=== PATIENT | male | born 1935 | race Hispanic/Latino ===

== ENCOUNTER → 2019-03-27 | Outpatient (CLI) | payer MEDICARE, OTHER ==
[~2019-03-27] MED LIST: IOHEXOL-350 50ML VIAL IV ONE
== END | disposition home or self-care (01) ==
LOC: RAH 08:16
PROVIDERS: ATTEND Internal Medicine Cardiovascular Disease
DX: I72.3 Aneurysm of iliac artery (principal); I70.1 Atherosclerosis of renal artery; I70.0 Atherosclerosis of aorta; I77.4 Celiac artery compression syndrome; I73.9 Peripheral vascular disease, unspecified; I10 Essential (primary) hypertension
CPT/HCPCS: 75635; Q9967

== ENCOUNTER 2019-05-23 05:45 | Day surgery (SDC) | payer MEDICARE, OTHER ==
[2019-05-21 13:59] LABS: BASOPHILS % (AUTO) 0.1 % (0.0-5.0); EOSINOPHILS % (AUTO) 1.3 % (0.0-8.0); HEMATOCRIT 43.9 % (42-54); LYMPHOCYTES % (AUTO) 20.4 % (21.0-51.0); MEAN CORPUSCULAR HEMOGLOBIN 30.1 pg (27.0-33.0); MEAN CORPUSCULAR VOLUME 91.3 fL (79-99); NEUTROPHILS % (AUTO) 68.4 % (40.0-77.0); PLATELET COUNT (AUTO) 251 K/uL (130-400); RED BLOOD CELL COUNT(AUTO) 4.81 MIL/uL (4.50-6.20); RED CELL DISTRIBUTION WIDTH 12.9 % (11.0-15.5); WHITE BLOOD COUNT (AUTO) 7.9 K/uL (4.8-10.8)
[2019-05-21 14:03] LABS: APPEARANCE,URINE Clear (CLEAR); BILIRUBIN,URINE Negative (NEGATIVE); COLOR,URINE Yellow (YELLOW); GLUCOSE, URINE (UA) >=1000 mg/dL (NEGATIVE); KETONES,URINE Negative (NEGATIVE); LEUKOCYTE ESTERASE ,URINE Negative (NEGATIVE); NITRATE,URINE Negative (NEGATIVE); OCCULT BLOOD,URINE Negative (NEGATIVE); PH,URINE 5.5 (5.0-8.0); PROTEIN,URINE Negative (NEGATIVE)
[2019-05-21 14:04] VITALS: BP 142/68
[2019-05-21 14:09] LABS: POTASSIUM 4.5 mmol/L (3.5-5.1)
[2019-05-21 14:14] LABS: INR 1.03 (0.85-1.15); PARTIAL THROMBOPLASTIN TIME 26.7 SEC (26.3-35.5); PROTHROMBIN TIME 10.8 SEC (9.6-11.6)
[2019-05-21 14:37] LABS: BACTERIA,URINE Rare /HPF (None Seen); RBC,URINE 0-1 /HPF (0-1); SQUAMOUS EPITHELIAL CELL,UR Rare /HPF (0-2); WBC,URINE 0-1 /HPF (0-1)
[~2019-05-23] VITALS: Ht 167.6 cm; Wt 68.7 kg
[2019-05-23] VITALS (9 sets, daily range): BP systolic 134–155; BP diastolic 56–68
[~2019-05-23 05:45] MED LIST changes: +CITA-106 PO; +GLIP1TAB6 PO; -IOHEXOL-350 50ML VIAL IV ONE; +LISI-617 PO; +PRAM0.375 PO; +SODIUM CHLORIDE 0.9% 500ML 500 ML IV SCH
[2019-05-23] MEDS ORDERED: SODIUM CHLORIDE 0.9% 1000ML 1,000 ML IV ONE (06:00)
--- NOTE | 2019-05-23 06:32 | NUR ---
SKIN ABRASION NOTED TO RIGHT LOWER LEG, NO OPEN AREA. PT STATES HAD A FALL AT HOME YESTERDAY. LEFT ELBOW WITH BANDAID. NO OPEN AREA. SLIGHT RED TO AREA Addendum: 05/23/19 at 0633 by ROMAINE OATES RN Amended: Links added.
[2019-05-23] MEDS ORDERED: CITA20TA17 PO (06:35)
[2019-05-23] MEDS ORDERED: LISI-613 PO (06:35)
[2019-05-23] MEDS ORDERED: GLIP1TAB5 PO (06:35)
[2019-05-23] MEDS ORDERED: PRAM1.5T25 PO (06:35)
[2019-05-23] MEDS ORDERED: SODIUM BICARB 50MEQ 50ML VIAL ONE (07:16)
[2019-05-23] MEDS ORDERED: HEPARIN SODIUM 1000UNIT/ML 10ML VIAL ONE (07:16)
[2019-05-23] MEDS ORDERED: MIDAZOLAM HCL 1 MG/ML 2ML VIAL ONE (07:17)
[2019-05-23] MEDS ORDERED: NITROGLYCERIN 1 MG/VIAL VIAL IV ONE (07:17)
[2019-05-23] MEDS ORDERED: MEPERIDINE-PF 25 MG/ML SYG ONE (07:17)
[2019-05-23] MEDS ORDERED: IODIXANOL 320 MG/ML 100 ML VIAL ONE (07:17)
[2019-05-23] MEDS ORDERED: LIDOCAINE HCL 2% 20ML ONE (07:18)
--- NOTE | 2019-05-23 07:20 | NUR ---
procedure pt taken to [facility] for scheduled procedure. pt awake and alert, no distress note.d spouse at bedside.
[2019-05-23] MEDS ORDERED: HYDRALAZINE HCL 20 MG/ML VIAL ONE (08:31)
[2019-05-23] MEDS ORDERED: CLOPIDOGREL BISULFATE 300 MG TAB ONE (08:48)
[2019-05-23] MEDS ORDERED: ASPIRIN 81MG TAB.CHEW ONE (08:48)
[2019-05-23] MEDS ORDERED: SODIUM CHLORIDE 0.9% 1000ML 1,000 ML IV SCH (09:04)
[2019-05-23] MEDS ORDERED: DEXTROSE 50%-WATER 50 ML DISP.SYRIN IV PRN (09:15)
[2019-05-23] MEDS ORDERED: GLUCAGON 1MG KIT 1 MG ML IM PRN (09:15)
--- NOTE | 2019-05-23 09:22 | NUR ---
POST RECEIVED PT FROM [facility] [facility]PART[facility]. S/P ABD AORTOGRAM .STENT X 2 TO LEFT LOWER LEG RIGHT GROIN WITH PERCLOSE CLOSURE DEVICE. DRESSING TO SITE DRY AND INTACT, SEE POST CATH ASSESSMENT. VS STABLE. PT INSTRUCTED TO KEEP RIGHT LEG STRAIGHT . TO KEEP BEDREST FOR 4 HRS. SPOUSE AT BEDSIDE. CALL LIGHT WITHIN REACH.
[2019-05-23] MEDS ORDERED: INSULIN HUMULIN R 100 UNIT/ML 3ML ONE (09:48)
[2019-05-23 10:01] LABS: CHOLESTEROL 308 mg/dL (<200); HDL CHOLESTEROL 56 mg/dL (29-71); LDL DIRECT 204 mg/dL (0-99); TRIGLYCERIDES 156 mg/dL (30-200)
[2019-05-23] MEDS ORDERED: INSULIN HUMULIN R 100 UNIT/ML 3ML SQ SCH (11:30)
--- NOTE | 2019-05-23 13:40 | NUR ---
DC PT DC HOME VIA WC, NO DISTRESS NOTED. PT DENIED ANY PAIN OR DISCOMFORTS. PT ACCOMPANIED BY SPOUSE, DC INTRUCTIONS REINFORCE AND RX GIVEN TO PT SPOUSE, INSTRUCTED TO F/U WITH DR Delaney JOHN.
== END 2019-05-23 13:40 | disposition home or self-care (01) ==
LOC: DAH 05:45
PROVIDERS: ATTEND Internal Medicine Cardiovascular Disease
DX: I70.213 Atherosclerosis of native arteries of extremities with intermittent claudication, bilateral legs (principal); K55.1 Chronic vascular disorders of intestine; I10 Essential (primary) hypertension; E78.5 Hyperlipidemia, unspecified; E11.9 Type 2 diabetes mellitus without complications; F17.210 Nicotine dependence, cigarettes, uncomplicated; Z85.118 Personal history of other malignant neoplasm of bronchus and lung; Z79.899 Other long term (current) drug therapy; Z98.890 Other specified postprocedural states; Z79.84 Long term (current) use of oral hypoglycemic drugs; Z72.89 Other problems related to lifestyle
CPT/HCPCS: 36415 ×2; 37226; 37230; 71045; 75625; 75716; 80048; 80061; 81001; 82948 ×3; 85025; 85610; 85730; 93005; A4215; A4216; A4221; A4222; A4223 ×2; A4606; A4663; C1725; C1760; C1769 ×2; C1874 ×2; C1893; C1894; J0360; J1644 ×2; J1815; J2175; J2250; J3490 ×3; J7030; Q9967; 75630

== ENCOUNTER 2019-07-03 05:40 | Day surgery (SDC) | payer OTHER ==
[2019-06-28 11:39] LABS: BASOPHILS % (AUTO) 0.3 % (0.0-5.0); HEMATOCRIT 43.3 % (42-54); LYMPHOCYTES % (AUTO) 18.5 % (21.0-51.0); MEAN CORPUSCULAR HEMOGLOBIN 30.5 pg (27.0-33.0); MEAN CORPUSCULAR HGB CONC 33.7 g/dL (32.0-36.0); MEAN CORPUSCULAR VOLUME 90.4 fL (79-99); MONOCYTES % (AUTO) 8.8 % (3.0-13.0); NEUTROPHILS % (AUTO) 70.7 % (40.0-77.0); PLATELET COUNT (AUTO) 216 K/uL (130-400); RED BLOOD CELL COUNT(AUTO) 4.79 MIL/uL (4.50-6.20); RED CELL DISTRIBUTION WIDTH 13.2 % (11.0-15.5); WHITE BLOOD COUNT (AUTO) 9.4 K/uL (4.8-10.8)
[2019-06-28 11:56] LABS: POTASSIUM 4.7 mmol/L (3.5-5.1)
[2019-06-28 11:56] LABS: APPEARANCE,URINE Clear (CLEAR); BILIRUBIN,URINE Negative (NEGATIVE); COLOR,URINE Yellow (YELLOW); GLUCOSE, URINE (UA) >=1000 mg/dL (NEGATIVE); KETONES,URINE Negative (NEGATIVE); LEUKOCYTE ESTERASE ,URINE Negative (NEGATIVE); NITRATE,URINE Negative (NEGATIVE); OCCULT BLOOD,URINE Negative (NEGATIVE); PROTEIN,URINE Negative (NEGATIVE)
[2019-06-28 11:58] LABS: INR 1.04 (0.85-1.15); PARTIAL THROMBOPLASTIN TIME 26.3 SEC (26.3-35.5); PROTHROMBIN TIME 10.9 SEC (9.6-11.6)
[2019-06-28 12:23] VITALS: BP 140/54
[2019-06-28 12:45] LABS: BACTERIA,URINE None Seen /HPF (None Seen); RBC,URINE 0-1 /HPF (0-1); SQUAMOUS EPITHELIAL CELL,UR 0-2 /HPF (0-2); WBC,URINE 0-1 /HPF (0-1)
[~2019-07-03] VITALS: Ht 167.6 cm; Wt 68.7 kg
[2019-07-03] VITALS (10 sets, daily range): BP systolic 102–142; BP diastolic 40–60
[~2019-07-03 05:40] MED LIST changes: -CITA-106 PO; +CITA20TA17 PO; +CLOP75TA14 PO; +GLIP1TAB5 PO; -GLIP1TAB6 PO; +LISI-613 PO; -LISI-617 PO; -PRAM0.375 PO; +PRAM1.5T25 PO; +ROSU10TA28 PO
[2019-07-03] MEDS ORDERED: SODIUM CHLORIDE 0.9% 1000ML 1,000 ML IV ONE (06:16)
[2019-07-03] MEDS ORDERED: IODIXANOL 320 MG/ML 100 ML VIAL ONE ×2 (07:15→07:17)
[2019-07-03] MEDS ORDERED: NITROGLYCERIN 2 MG/VIAL VIAL IV ONE (07:15)
[2019-07-03] MEDS ORDERED: MIDAZOLAM HCL 1 MG/ML 2ML VIAL ONE (07:15)
[2019-07-03] MEDS ORDERED: HEPARIN SODIUM 1000UNIT/ML 10ML VIAL ONE (07:15)
[2019-07-03] MEDS ORDERED: FENTANYL CITRATE PF 50 MCG/1 ML 2ML VIAL ONE (07:16)
[2019-07-03] MEDS ORDERED: LIDOCAINE HCL 2% 20ML ONE (07:16)
[2019-07-03] MEDS ORDERED: CLOPIDOGREL BISULFATE 300 MG TAB ONE (08:09)
[2019-07-03] MEDS ORDERED: ASPIRIN 325MG EC TAB 325 MG TABLET.DR PO ONE (09:16)
== END 2019-07-03 14:00 | disposition home or self-care (01) ==
LOC: DAH 05:40
PROVIDERS: ATTEND Internal Medicine Cardiovascular Disease
DX: I70.211 Atherosclerosis of native arteries of extremities with intermittent claudication, right leg (principal); I10 Essential (primary) hypertension; E78.5 Hyperlipidemia, unspecified; E11.9 Type 2 diabetes mellitus without complications; Z98.890 Other specified postprocedural states; Z79.899 Other long term (current) drug therapy; Z79.84 Long term (current) use of oral hypoglycemic drugs; Z72.89 Other problems related to lifestyle; Z87.891 Personal history of nicotine dependence; Z79.01 Long term (current) use of anticoagulants
CPT/HCPCS: 36415; 37225; 37230; 71045; 75625; 75710; 80048; 81001; 82948 ×2; 85025; 85347 ×2; 85610; 85730; 93005; A4215; A4216; A4221; A4222; A4223 ×3; A4606; A4663; C1725; C1760 ×2; C1769; C1874; C1884; C1893; C1894 ×3; C2623; J1644 ×3; J2250; J3010; J3490 ×2; J7030; Q9967; 99156; 99157